=== PATIENT | male | born 1965 | race Caucasian/White ===

== ENCOUNTER 2024-12-09 12:22 | Emergency (ER) | payer SELFPAY ==
[2024-12-09 12:24] VITALS: BP 156/91
--- NOTE | 2024-12-09 12:55 | ED.GENMED ---
History of Present Illness
General
Chief Complaint: Crisis Evaluation
Time Seen by Provider: 12/09/24 12:34
History of Present Illness
History of Present Illness:
Patient is a 59-year-old male presenting to the emergency department for crisis evaluation. Patient states that he does not have any medical complaints at this time. He denies any SI or HI. No prior psychiatric history. He is brought in on a 302
that his initiated. Patient states that his relationship with his is tense. There has not been any physical altercation. He does note that his son can attest to the behaviors of patient's .
Phy Exam
Physical Exam
Physical Exam:
GENERAL: in no acute distress
HEENT: normocephalic, extraocular movements intact
NECK: normal inspection
RESPIRATORY: no respiratory distress
CARDIOVASCULAR: regular rate and rhythm
EXTREMITIES: no edema/swelling
NEUROLOGIC: awake and alert, moves all extremities
Psych: Alert and oriented x 3, normal mood and affect, speech normal not pressured, coherent thought process, not tangential, not currently suicidal or homicidal, cooperative and communicating, no active auditory or visual hallucinations
SKIN: warm
Course
Orders/Labs/Results
Orders:
Orders
12/09/24 12:29
Crisis Consult Urgent
Reason for Consult: brought by PD for 302.
Vital Signs
Initial and Last Documented VS:
Initial Vital Signs
Temp Pulse Resp BP Pulse Ox
98.1 F 82 16 156/91 100
12/09/24 12:24 12/09/24 12:24 12/09/24 12:24 12/09/24 12:24 12/09/24 12:24
Last Documented Vital Signs
Temp Pulse Resp BP Pulse Ox
98.1 F 82 16 156/91 100
12/09/24 12:24 12/09/24 12:24 12/09/24 12:24 12/09/24 12:24 12/09/24 12:57
MDM/Problems Addressed
Differential Diagnosis Includes:
Patient is a 59-year-old man presenting to the emergency department for crisis evaluation. Patient denies any medical complaints at this time and is medically clear for crisis evaluation.
Crisis as well as Dr. Scott evaluated patient and discussed with son. Ultimately 302 overturned. Patient continues to deny any SI or HI. He is very calm cooperative. Patient's son will pick him up.
*Pulse Oximetry
SaO2: 100
Oxygen Mode of Delivery: Room air
Patient hypoxic: no (100)
*Critical Care Note
Total Time (30-74mins, 75-104mins- exclusive of procedures): Not Applicable
ED Attending Note
-
Portions of this chart may have been created with voice recognition software.� Occasional wrong word or��sound alike� substitutions may have occurred due to the inherent limitations of voice recognition software.
Discharge Plan
Departure
Patient Disposition: Home (Routine Discharge)
Date of Disposition: 12/09/24
Time of Disposition: 14:30
Patient with high blood pressure during this ER visit?: No
Discharge Problem:
Encounter for medical assessment
Referrals:
UNKNOWN - PT NOT,INTERVIEWE [Family Provider]
Interventions
Interventions:
*Risk Screen - Suicide Last Done: 12/09/24 12:28
*Nursing Disposition Last Done: 12/09/24 15:06
ED-Psychological Assessment Last Done: 12/09/24 12:28
Discharge Date and Time
Discharge Date/Time: 12/09/24 15:07
Print Language: HUNGARIAN
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
== END 2024-12-09 15:07 | disposition home or self-care (01) ==
LOC: EMR 12:22
PROVIDERS: EMERGENCY PHYSICIAN Student in an Organized Health Care Education/Training Program; OTHER PHYSICIAN Psychiatry & Neurology Psychiatry
DX: Z02.79 Encounter for issue of other medical certificate (principal); F43.20 Adjustment disorder, unspecified; Z63.8 Other specified problems related to primary support group; Z59.89 Other problems related to housing and economic circumstances
CPT/HCPCS: 99281